=== PATIENT | female | born 1940 | race Caucasian/White ===

== ENCOUNTER 2021-02-02 17:09 | Emergency (ER) | payer OTHER ==
[2021-02-03 13:07] LABS: SARS-CoV-2 NAA Not Detected (Not Detected)
== END 2021-02-02 17:39 | disposition home or self-care (01) ==
LOC: JVIRT 17:09
DX: R07.9 Chest pain, unspecified (principal); R05 Cough; Z11.52 Encounter for screening for COVID-19
CPT/HCPCS: C9803; G2251-GT; U0003; U0005

== ENCOUNTER 2021-04-01 14:05 | Emergency (ER) | payer OTHER ==
[2021-04-01 14:23] VITALS: TEMP 98.2; BMI 37.0
[2021-04-01] MEDS ORDERED: ACETAMINOPHEN 500 MG TABLET (FP) PO ONE (14:26)
[2021-04-01] MEDS ORDERED: ACETAMINOPHEN 500 MG TABLET (FP) ONE (14:30)
[2021-04-01 17:28] VITALS: BP 145/88; PULSE 61
== END 2021-04-01 17:40 | disposition home or self-care (01) ==
LOC: FER 14:05
DX: L23.7 Allergic contact dermatitis due to plants, except food (principal)
CPT/HCPCS: 70450-TC; 70486-TC; 99284-25